=== PATIENT | female | born 1985 | race Hispanic/Latino ===

== ENCOUNTER 2019-12-15 18:29 | Emergency (ER) | payer OTHER ==
--- NOTE | 2019-12-15 19:32 | EDPHYS ---
Physician Documentation [facility] Name: Zahida Little Age: 34 yrs Sex: Female : 1985 Arrival Date: 12/15/2019 Time: 18:34 Bed 12 Private MD: ED Physician William Kim HPI: 12/14 19:25 This 34 yrs old Female presents to ER via Ambulatory with complaints of [place] pkl [place]. 19:25 The patient presents with a bite, [place] The pkl complaints affect the right calf. Onset: The symptoms/episode began/occurred just prior to arrival. Associated signs and symptoms: The patient has no apparent associated signs or symptoms. Historical: - Allergies: 18:49 PENICILLINS; ll1 - PMHx: 18:49 ulcerative colitis; ll1 - Immunization history:: Flu vaccine is up to date. - Social history:: Smoking status: Patient denies any tobacco usage or history of. Patient uses alcohol, occasionally. only on a social basis. Patient/guardian denies using street drugs. ROS: 19:25 Eyes: Negative for injury, pain, redness, and discharge, ENT: Negative for injury, pkl pain, and discharge, Neck: Negative for injury, pain, and swelling, Cardiovascular: Negative for chest pain, palpitations, and edema, Respiratory: Negative for shortness of breath, cough, wheezing, and pleuritic chest pain, Abdomen/GI: Negative for abdominal pain, nausea, vomiting, diarrhea, and constipation, Back: Negative for injury and pain, : Negative for injury, bleeding, discharge, and swelling. 19:25 MS/extremity: Positive for bite, erythema, pain, swelling, of the right calf. 19:25 Neuro: Negative for altered mental status, loss of consciousness. Exam: 19:25 Head/Face: Normocephalic, atraumatic. Eyes: Pupils equal round and reactive to light, pkl extra-ocular motions intact. Lids and lashes normal. Conjunctiva and sclera are non-icteric and not injected. Cornea within normal limits. Periorbital areas with no swelling, redness, or edema. ENT: Nares patent. No nasal discharge, no septal abnormalities noted. Tympanic membranes are normal and external auditory canals are clear. Oropharynx with no redness, swelling, or masses, exudates, or evidence of obstruction, uvula midline. Mucous membranes moist. Neck: Trachea midline, no thyromegaly or masses palpated, and no cervical lymphadenopathy. Supple, full range of motion without nuchal rigidity, or vertebral point tenderness. No Meningismus. Chest/axilla: Normal chest wall appearance and motion. Nontender with no deformity. No lesions are appreciated. Cardiovascular: Regular rate and rhythm with a normal S1 and S2. No gallops, murmurs, or rubs. Normal PMI, no JVD. No pulse deficits. Respiratory: Lungs have equal breath sounds bilaterally, clear to auscultation and percussion. No rales, rhonchi or wheezes noted. No increased work of breathing, no retractions or nasal flaring. Abdomen/GI: Soft, non-tender, with normal bowel sounds. No distension or tympany. No guarding or rebound. No evidence of tenderness throughout. Back: No spinal tenderness. No costovertebral tenderness. Full range of motion. Neuro: Awake and alert, GCS 15, oriented to person, place, time, and situation. Cranial nerves II-XII grossly intact. Motor strength 5/5 in all extremities. Sensory grossly intact. Cerebellar exam normal. Normal gait. 19:25 Musculoskeletal/extremity: Extremities: grossly normal except: noted in the right calf: erythema, pain, swelling. Vital Signs: 18:47 BP 114 / 77; Pulse 100; Resp 17; Temp 98.2; Pulse Ox 100% ; Pain 10/10; ll1 MDM: 19:18 Patient medically screened. pkl 19:25 Data reviewed: vital signs, nurses notes. pkl Administered Medications: 19:33 Drug: Tylenol #3 (300 mg-30 mg) 1 tablet Route: PO; sg Disposition: 12/15/19 19:31 Discharged to Home. Impression: Bitten by [place]. - Condition is Stable. - Prescriptions for Tylenol- Codeine #3 300-30 mg Oral Tablet - take 1 tablet by ORAL route every 8 hours As needed; 20 tablet. Doxycycline Hyclate 100 mg Oral Tablet - take 1 tablet by ORAL route every 12 hours; 14 tablet. - Medication Reconciliation Form, Thank You Letter, Antibiotic Education, Prescription Opioid Use form. - Follow up: Private Physician; When: 2 - 3 days; Reason: Re-evaluation by your physician. - Problem is new. - Symptoms are unchanged. Signatures: Noé Hinton RN RN sg William Kim MD MD pkl Eugene Lacy RN RN ll1 Corrections: (The following items were deleted from the chart) 19:46 19:31 12/15/2019 19:31 Discharged to Home. Impression: Bitten by [place]. Condition is Stable. Forms are Medication Reconciliation Form, Thank You Letter, Antibiotic Education, Prescription Opioid Use. Follow up: Private Physician; When: 2 - 3 days; Reason: Re-evaluation by your physician. Problem is new. Symptoms are unchanged. pkl
--- NOTE | 2019-12-15 19:32 | ER ---
Nurse's Notes [facility] Name: Zahida Little Age: 34 yrs Sex: Female : 1985 Arrival Date: 12/15/2019 Time: 18:34 Bed 12 Private MD: Diagnosis: Bitten by [place] Presentation: 12/14 18:47 Chief complaint: Patient states: Right lower extremity burning, redness, and pain. Was ll1 in beach water and felt stinging to leg. Saw something blue in the water. Coronavirus screen: Patient denies a cough. Patient denies shortness of breath or difficulty breathing. Patient denies measured and/or subjective temperature greater than 100.4F prior to today's visit. Patient denies travel on a cruise ship or to a country the [facility] currently lists as an affected area. Patient denies contact with known and/or suspected case of COVID-19. Proceed with normal triage. Ebola Screen: Patient denies travel to an Ebola-affected area in the 21 days before illness onset. Initial Sepsis Screen: Does the patient meet any 2 criteria? HR > 90 bpm. No. Patient's initial sepsis screen is negative. Risk Assessment: Do you want to hurt yourself or someone else? Patient reports no desire to harm self or others. Onset of symptoms was December 15, 2019. 18:47 Method Of Arrival: Ambulatory 1 18:47 Acuity: CAROLINE 4 ll1 19:09 Initial Sepsis Screen: Does the patient have a suspected source of infection? No. ll1 Patient's initial sepsis screen is negative. Historical: - Allergies: 18:49 PENICILLINS; ll1 - PMHx: 18:49 ulcerative colitis; ll1 - Immunization history:: Flu vaccine is up to date. - Social history:: Smoking status: Patient denies any tobacco usage or history of. Patient uses alcohol, occasionally. only on a social basis. Patient/guardian denies using street drugs. Screenin:09 Abuse screen: Denies threats or abuse. Nutritional screening: No deficits noted. ll1 Tuberculosis screening: No symptoms or risk factors identified. Fall Risk None identified. Assessment: 19:07 General: Appears in no apparent distress. Behavior is calm, cooperative, appropriate ll1 for age. Pain: Complains of pain in RLE Pain currently is 10 out of 10 on a pain scale. Quality of pain is described as burning, Pain began 1 hour ago. Is continuous. Derm: RLE redness, burning. (possible jellyfish sting). Reports burning. Musculoskeletal: Circulation, motion, and sensation intact. Capillary refill < 3 seconds, Tenderness present in right lateral guevara area Reports pain in RLE. Injury Description: Bite sustained to RLE caused by an unknown animal, is superficial, was sustained 1-2 hours ago. Vital Signs: 18:47 BP 114 / 77; Pulse 100; Resp 17; Temp 98.2; Pulse Ox 100% ; Pain 10/10; ll1 ED Course: 18:34 Patient arrived in ED. fj1 18:48 Triage completed. ll1 18:49 Arm band placed on Patient notified of wait time. 1 19:07 Eugene Lacy RN is Primary Nurse. 1 19:18 William Kim MD is Attending Physician. pkl 19:25 Patient has correct armband on for positive identification. Bed in low position. Call sg light in reach. Pulse ox on. NIBP on. 19:40 No provider procedures requiring assistance completed. Patient did not have IV access sg during this emergency room visit. Administered Medications: 19:33 Drug: Tylenol #3 (300 mg-30 mg) 1 tablet Route: PO; sg Outcome: 19:31 Discharge ordered by . pkl 19:40 Discharged to home ambulatory, with family. sg 19:40 Condition: good 19:40 Discharge instructions given to patient, Instructed on discharge instructions, follow up and referral plans. no drinking with medication, no driving heavy equipment, medication usage, wound care, Demonstrated understanding of instructions, follow-up care, medications, wound care, Prescriptions given X 2. 19:46 Patient left the ED. sg Signatures: Noé Hinton RN MEREDITH William Kim MD MD Dagoberto Bundy [facility] Eugene Lacy RN RN [facility]
[2019-12-15] MEDS ORDERED: CODEINE 30MG/APAP 300MG TAB ONE (19:46)
[2019-12-15 20:31] VITALS: BP 114/77; TEMP 98.2; O2SAT 100
== END 2019-12-15 19:46 | disposition home or self-care (01) ==
LOC: ER 18:29
DX: M79.661 Pain in right lower leg (principal); W55.81XA Bitten by other mammals, initial encounter; Y93.89 Activity, other specified; Y92.832 Beach as the place of occurrence of the external cause; Z88.0 Allergy status to penicillin
CPT/HCPCS: 99283